=== PATIENT | female | born 1985 | race Caucasian/White ===

== ENCOUNTER 2017-01-06 18:43 | Emergency (ER) | payer MEDICAID ==
[~2017-01-06] VITALS: Ht 165.1 cm; Wt 63.5 kg
[2017-01-06 18:45] VITALS: BP_SYST 108
--- NOTE | 2017-01-06 18:45 | NUR ---
Patient triaged and placed in waiting room. VSS and patient appears in no acute distress at this time. Accompanied by SELF, awaiting available bed, and MD notified of need for MSE.
--- NOTE | 2017-01-06 21:00 | NUR ---
Called pt to bed and no answer.
--- NOTE | 2017-01-06 21:18 | NUR ---
Called pt to be placed in bed and no answer
--- NOTE | 2017-01-06 21:27 | NUR ---
Patient left without being seen. Called pt to bed and no answer.
== END 2017-01-06 21:27 | disposition left against medical advice (07) ==
LOC: SED 18:43
DX: L02.811 Cutaneous abscess of head [any part, except face] (principal); Z53.21 Procedure and treatment not carried out due to patient leaving prior to being seen by health care provider